=== PATIENT | female | born 1980 | race Caucasian/White ===

== ENCOUNTER 2016-08-22 16:45 | Emergency (ER) | payer MEDICAID ==
[2016-08-22 17:02] VITALS: BP 132/98
== END 2016-08-22 17:33 | disposition home or self-care (01) ==
LOC: ED 16:45
DX: K04.7 Periapical abscess without sinus (principal); K02.9 Dental caries, unspecified

== ENCOUNTER 2016-10-23 16:21 | Emergency (ER) | payer MEDICAID ==
[2016-10-23 17:47] LABS: PLATELET COUNT 343 x10^3mcL (130-400)
[2016-10-23 17:49] LABS: BASOPHIL % 0 % (0-2); RED CELL DISTRIBUTION WIDTH 14.8 % (11.5-14.5)
[2016-10-23 17:57] LABS: CALCIUM 9.2 mg/dL (8.5-10.1); CARBON DIOXIDE 29.9 mmol/L (21-32); CHLORIDE SERUM 100 mmol/L (98-107); CREATININE SERUM 0.9 mg/dL (0.6-1.0); GFR1 > 60 mL/min; GLUCOSE SERUM 109 mg/dL (74-106); POTASSIUM SERUM 3.7 mmol/L (3.5-5.1); SODIUM SERUM 140 mmol/L (136-145)
[2016-10-23 18:01] LABS: ALBUMIN 4.2 g/dL (3.4-5.0); ALKALINE PHOSPHATASE 91 U/L (46-116); ALT/SGPT 20 U/L (14-59); AST/SGOT 19 U/L (15-37); CHOLESTEROL 186 mg/dL (<200)
[2016-10-23 18:03] LABS: TOTAL PROTEIN, SERUM 8.8 g/dL (6.4-8.2)
[2016-10-23 18:55] LABS: AMPHETAMINE QUAL UR POSITIVE (NEG <=1000)
[2016-10-23 20:28] VITALS: BP 126/83
== END 2016-10-23 20:28 | disposition home or self-care (01) ==
LOC: ED 16:21
PROVIDERS: Specialist
DX: E86.0 Dehydration (principal); F19.10 Other psychoactive substance abuse, uncomplicated; Z90.49 Acquired absence of other specified parts of digestive tract
CPT/HCPCS: 83880; G0480; J7030

== ENCOUNTER 2017-06-10 18:43 | Emergency (ER) | payer MEDICAID ==
[~2017-06-10] VITALS: Ht 167.6 cm; Wt 76.2 kg
[2017-06-10 19:23] VITALS: BP 130/76; Ht 167.6 cm; Wt 76.2 kg
== END 2017-06-10 23:21 | disposition home or self-care (01) ==
LOC: ED 18:43
DX: S61.411A Laceration without foreign body of right hand, initial encounter (principal); I10 Essential (primary) hypertension; W01.198A Fall on same level from slipping, tripping and stumbling with subsequent striking against other object, initial encounter; Y93.89 Activity, other specified; Y99.8 Other external cause status; Y92.89 Other specified places as the place of occurrence of the external cause